=== PATIENT | female | born 1995 | race Caucasian/White ===

== ENCOUNTER 2018-11-07 18:38 | Emergency (ER) | payer OTHER, MEDICAID ==
[2018-11-07 19:30] LABS: ADD MAN DIFF? NO
[2018-11-07 19:31] LABS: WHITE BLOOD COUNT 17.9 10^3/ul (4.8-10.8)
[2018-11-07 19:31] LABS: HEMATOCRIT 42.9 % (37.0-47.0); HEMOGLOBIN 14.2 g/dl (12.0-16.0); MEAN CORPUSCULAR HEMOGLOBIN 28.4 pg (29.0-33.0); MEAN CORPUSCULAR HGB CONC 33.1 g/dl (32.0-37.0); MEAN CORPUSCULAR VOLUME 85.8 fl (82.0-101.0); MEAN PLATELET VOLUME 10.3 fl (7.4-10.4); PLATELET COUNT 233 10^3/UL (140-415); RED CELL DISTRIBUTION WIDTH 13.2 % (11.5-14.5)
[2018-11-07] MEDS: SOD CHLORIDE 0.9% 1,000 ML IV (19:33)
[2018-11-07] MEDS: IBUPROFEN 600 MG TAB PO (19:34)
[2018-11-07] MEDS: ACETAMINOPHEN 325 MG TAB PO (19:34)
[2018-11-07] MEDS: morphine 4 MG/ML VIAL IV (19:34)
[2018-11-07] MEDS: ONDANSETRON 4 MG INJ IV (19:34)
[2018-11-07 19:45] LABS: ADD UMIC YES; UR ASCORBIC ACID NEGATIVE (NEGATIVE); UR BACTERIA FEW /HPF (NONE SEEN); UR BILIRUBIN (Dip) NEGATIVE (NEGATIVE); UR BLOOD (Dip) 1+ mg/dL (NEGATIVE); UR CLARITY SLIGHTLY CLOUDY (CLEAR); UR COLOR YELLOW (YELLOW); UR GLUCOSE (Dip) NEGATIVE (NEGATIVE); UR KETONES (Dip) TRACE mg/dL (NEGATIVE); UR LEUKOCYTE ESTERASE (Dip) TRACE Leu/ul (NEGATIVE); UR MUCUS FEW /HPF (NONE SEEN); UR NITRITE (Dip) NEGATIVE (NEGATIVE); UR RBC 7 /HPF (0-5); UR SPECIFIC GRAVITY (Dip) 1.023 (1.003-1.030); UR SQUAMOUS EPITHELIAL CELL FEW /HPF (FEW); UR TOTAL PROTEIN (Dip) NEGATIVE (NEGATIVE); UR UROBILINOGEN (Dip) NEGATIVE (NEGATIVE); UR WBC 9 /HPF (0-5)
[2018-11-07 19:55] LABS: ALANINE AMINOTRANSFERASE 14 IU/L (13-69); ALBUMIN 4.4 g/dl (3.3-4.9); ALBUMIN/GLOBULIN RATIO 1.33; ALKALINE PHOSPHATASE 72 IU/L (42-121); ANION GAP 9 (5-13); ASPARTATE AMINO TRANSFERASE 21 IU/L (15-46); BILIRUBIN,INDIRECT 0.8 mg/dl (0-1.1); BILIRUBIN,TOTAL 0.8 mg/dl (0.2-1.3); BLOOD UREA NITROGEN 10 mg/dl (7-20); CALCIUM 9.3 mg/dl (8.4-10.2); CARBON DIOXIDE 24 mmol/L (21-31); CHLORIDE 101 mmol/L (97-110); CREATININE 0.79 mg/dl (0.44-1.00); Estimated GFR > 60 mL/min (>60); GLUCOSE 123 mg/dl (70-220); LIPASE 15 U/L (23-300); POTASSIUM 4.4 mmol/L (3.5-5.1); SODIUM 134 mmol/L (135-144); TOTAL PROTEIN 7.7 g/dl (6.1-8.1)
[2018-11-07 20:05] LABS: ANISOCYTOSIS 2+ (0-0); BAND NEUTROPHILS #M 1.6 10^3/ul (0.0-0.6); BAND NEUTROPHILS % (M) 9 % (0-4); EOSINOPHILS % (M) 1 % (0-7); GIANT THROMBO% (M) 1 % (0-0); LYMPHOCYTES #M 0.7 10^3/ul (0.8-2.9); LYMPHOCYTES % (M) 4 % (15-51); MICROCYTOSIS 2+ (0-0); MONOCYTE #M 0.3 10^3/ul (0.3-0.9); MONOCYTES % (M) 2 % (0-11); PLATELET ESTIMATE NORMAL; POLYCHROMASIA 3+ (0-0); REACTIVE LYMPHOCYTES #M 0.3 10^3/ul (0.0-0.0); REACTIVE LYMPHOCYTES% (M) 2 % (0-0); SEGMENTED NEUTROPHILS (M) % 82 % (39-77); SMUDGE%M 3 % (0-0)
[2018-11-07 20:53] LABS: MONOTEST Negative (NEG)
[2018-11-07] MEDS: SOD CHLORIDE 0.9% 500 ML IV (21:03)
[2018-11-07] MEDS: CIPROFLOXACIN 400MG/D5W 200 ML IVPB (21:58)
== END 2018-11-07 23:08 | disposition home or self-care (01) ==
LOC: FTE 23:08
DX: R10.31 Right lower quadrant pain (principal); R10.2 Pelvic and perineal pain
CPT/HCPCS: 36415; 71045; 74176; 76830; 76856; 80053; 81001; 81025; 83605; 83690; 85025; 86308; 87086; 87400; 96374; 96375; 99285-25